=== PATIENT | female | born 1980 | race Caucasian/White ===

== ENCOUNTER 2019-05-09 20:00 | Emergency (ER) | payer SELFPAY ==
[~2019-05-09] VITALS: Ht 165.1 cm; Wt 63.0 kg
[2019-05-09 20:35] VITALS: BP 142/86
[2019-05-09] MEDS ORDERED: PENI500T PO (21:10)
[2019-05-09] MEDS ORDERED: HYDR-3164 PO (21:10)
--- NOTE | 2019-05-09 21:10 | PHYS DOC ---
Past Medical History Past Medical History: No Pertinent History Past Surgical History: No Surgical History Smoking Status: Never Smoker Alcohol Use: Occasionally Drug Use: None Adult General Chief Complaint Chief Complaint: DENTAL PROBLEM HPI HPI Patient is a 38 year old female who presents with right upper inner gums are tender and swollen. No drainage is seen. Patient does have dental caries. No broken teeth. This is been going on for the last 3 days. Patient rates her pain a 10 out of 10. Patient also has right facial swelling. She denies fever. Review of Systems Review of Systems HENT: Denies nasal congestion or sore throat. Gum line irritation and facial swelling. [] All other systems were reviewed and found to be within normal limits, except as documented in this note. Physical Exam Physical Exam Constitutional: Well developed, well nourished, no acute distress, non-toxic appearance. [] HENT: Normocephalic, atraumatic, bilateral external ears normal, oropharynx moist, no oral exudates, nose normal. Right facial swelling and upper inner gumline along teeth is swollen and tender with palpation. Dental caries. [] Eyes: PERRLA, EOMI, conjunctiva normal, no discharge. [] Neck: Normal range of motion, no tenderness, supple, no stridor. [] Cardiovascular:Heart rate regular rhythm, no murmur [] Lungs & Thorax: Bilateral breath sounds clear to auscultation [] Abdomen: Bowel sounds normal, soft, no tenderness, no masses, no pulsatile sharmin s. [] Skin: Warm, dry, no erythema, no rash. [] Back: No tenderness, no CVA tenderness. [] Extremities: No tenderness, no cyanosis, no clubbing, ROM intact, no edema. [] Neurologic: Alert and oriented X 3, normal motor function, normal sensory function, no focal deficits noted. [] Psychologic: Affect normal, judgement normal, mood normal. [] Current Patient Data Vital Signs Vital Signs Date Time Temp Pulse Resp B/P (MAP) Pulse Ox O2 Delivery O2 Flow Rate FiO2 05/09/19 20:35 98.1 90 18 142/86 (104) 98 Room Air 98.1 EKG EKG [] Radiology/Procedures Radiology/Procedures [] Course & Med Decision Making Course & Med Decision Making Pertinent Labs and Imaging studies reviewed. (See chart for details) Patient complains that the pain goes into her ear and in her jaw line and down into the right throat. No swelling of the tonsils or exudates or redness of the throat. No tenderness in the neck with palpation and there is no lymph nodes swollen. Patient does have tenderness to the right side of her face with palpat ion. No redness or cellulitis is seen. Patient to follow-up with a dentist as soon as possible. [] Dragon Disclaimer Dragon Disclaimer This electronic medical record was generated, in whole or in part, using a voice recognition dictation system. Departure Departure Impression: Primary Impression: Pain, dental Disposition: HOME, SELF-CARE Condition: STABLE Referrals: NO PCP (PCP) Patient Instructions: Dental Abscess Additional Instructions: Follow up with a dentist as soon as possible. Take medication as prescribed. Scripts Hydrocodone/Apap 5-325 (NORCO 5-325 TABLET) 1 Each Tablet 1 TAB PO PRN Q6HRS PRN for PAIN, #10 TAB 0 Refills Prov: DENISE RECINOS APRN 05/09/19 Penicillin V Potassium (PENICILLIN V POTASSIUM) 500 Mg Tablet 1 TAB PO QID, #40 TAB Prov: DENISE RECINOS APRN 05/09/19 DENISE RECINOS APRN May 09, 2019 21:10
== END 2019-05-09 21:14 | disposition home or self-care (01) ==
LOC: ER 20:00
DX: K08.89 Other specified disorders of teeth and supporting structures (principal); R60.0 Localized edema; K05.00 Acute gingivitis, plaque induced
CPT/HCPCS: 99283

== ENCOUNTER 2019-09-04 11:02 | Emergency (ER) | payer SELFPAY ==
[~2019-09-04] VITALS: Ht 154.9 cm; Wt 62.7 kg
[~2019-09-04 11:02] MED LIST: HYDR-3164 PO; PENI500T PO
--- NOTE | 2019-09-04 12:43 | RAD ---
PROCEDURE: HAND LEFT 3V STUDY DATE: 09/04/2019 CLINICAL INDICATION / HISTORY: Reason: NO DEFINITE INJURY, PAIN ACROSS 4TH AND 5TH METACARPAL / Spl. Instructions: / History: . TECHNIQUE: PA, lateral and oblique views of the left hand. COMPARISON: None FINDINGS: No fracture or dislocation is identified. The bone density is normal. The joint spaces are maintained, and there are no erosions to suggest an inflammatory arthropathy. The soft tissues are unremarkable. IMPRESSION: No acute osseous abnormality. Electronically signed by: Eli Rodríguez MD (09/04/2019 12:41 PM) [id number]
[2019-09-04 12:53] VITALS: BP 145/83
--- NOTE | 2019-09-04 13:17 | PHYS DOC ---
Past Medical History Past Medical History: No Pertinent History (DENISE RECINOS APRN) Past Surgical History: No Surgical History (DENISE RECINOS APRN) Smoking Status: Never Smoker Alcohol Use: Occasionally Drug Use: None (DENISE RECINOS APRN) General Adult EDM: Chief Complaint: HAND PROBLEM HPI: HPI: Patient is a 39 year old female who presents with left hand ulnar pain and swelling. 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 She states that all the weight of this patient has to go on this hand in the wrist area. She noticed 1 week ago the swelling and the throbbing pain and then it went away. She states that 3 days ago it returned. She states she is been taking care of this patient for the last 2 months. She states she does not have a primary care physician. She denies skin color change, skin temperature change, numbness or tingling, focal weakness, chest pain, shortness of air, injury, headache, dizziness, previous PEs or DVTs, vision changes. (DENISE RECINOS APRN) Review of Systems: Review of Systems: Constitutional: Denies fever or chills. [] Eyes: Denies change in visual acuity. [] HENT: Denies nasal congestion or sore throat. [] Respiratory: Denies cough or shortness of breath. [] Cardiovascular: Denies chest pain or edema. [] GI: Denies abdominal pain, nausea, vomiting, bloody stools or diarrhea. [] : Denies dysuria. [] Musculoskeletal: Denies back pain or Left hand joint pain. [] Integument: Denies rash. [] Neurologic: Denies headache, focal weakness or sensory changes. [] Endocrine: Denies polyuria or polydipsia. [] Lymphatic: Denies swollen glands. [] Psychiatric: Denies depression or anxiety. [] (DENISE RECINOS APRN) Heart Score: Risk Factors: Risk Factors: DM, Current or recent (<one month) smoker, HTN, HLP, family history of CAD, obesity. Risk Scores: Score 0 - 3: 2.5% MACE over next 6 weeks - Discharge Home Score 4 - 6: 20.3% MACE over next 6 weeks - Admit for Clinical Observation Score 7 - 10: 72.7% MACE over next 6 weeks - Early Invasive Strategies (DENISE RECINOS APRN) Physical Exam: PE: Constitutional: Well developed, well nourished, no acute distress, non-toxic appearance. [] HENT: Normocephalic, atraumatic, bilateral external ears normal, oropharynx moist, no oral exudates, nose normal. [] Eyes: PERRLA, EOMI, conjunctiva normal, no discharge. [] Neck: Normal range of motion, no tenderness, supple, no stridor. [] Cardiovascular:Heart rate regular rhythm, no murmur [] Lungs & Thorax: Bilateral breath sounds clear to auscultation [] Abdomen: Bowel sounds normal, soft, no tenderness, no masses, no pulsatile masses. [] Skin: Warm, dry, no erythema, no rash. [] Back: No tenderness, no CVA tenderness. [] Extremities: Left ulnar side of hand tenderness, no cyanosis, no clubbing, ROM intact, 1+ edema. [] Neurologic: Alert and oriented X 3, normal motor function, normal sensory function, no focal deficits noted. [] Psychologic: Affect normal, judgement normal, mood normal. [] (DENISE RECINOS LIBERAL ARTS DEAN) Current Patient Data: Vital Signs: Vital Signs Date Time Temp Pulse Resp B/P (MAP) Pulse Ox O2 Delivery O2 Flow Rate FiO2 09/04/19 12:53 97.8 72 16 145/83 (103) 100 Room Air 97.8 (DENISE RECINOS LIBERAL ARTS DEAN) EKG: EKG: [] (DENISE RECINOS APRN) Radiology/Procedures: Radiology/Procedures: [] (DENISE RECINOS APRN) Course & Med Decision Making: Course & Med Decision Making Pertinent Labs and Imaging studies reviewed. (See chart for details) Full sensations intact. Left hand 1+ swollen. Patient can still wear her rings on her finger but I educated her that she should probably take the rings off. Also educated her that she needs to elevate and use ice on the hand. We will give her an Osman bandage to help pain or she can use it when she is working. Patient can make a fist but is weaker than the other fist due to some swelling. Cap refill less than 3 seconds. Skin pink warm and dry. Radial pulses strong and present. The rest of the arm is not swollen. She has full range of motion of her wrist and her elbow. She can wiggle and move all fingers. Patient is educated that if she has skin color changes or coolness to the extremity or increased pain and swelling she should return. Ambulatory with a steady gait. Speaks in full clear sentences. Skin pink warm and dry. Patient denies any past medical history or medications. She states she is been taking Tylenol at home for pain. She states it does help. [] (DENISE RECINOS APRN) Dragon Disclaimer: Dragon Disclaimer: This electronic medical record was generated, in whole or in part, using a voice recognition dictation system. (DENISE RECINOS APRN) Departure Departure Impression: Primary Impression: Hand pain, left Disposition: 01 HOME, SELF-CARE Condition: STABLE Referrals: NO PCP (PCP) Patient Instructions: Medical Screening Exam Additional Instructions: Follow-up with a primary care physician. Remember if you start having skin color changes increased swelling and pain or loss of sensation you need to ret urn to the emergency room. Take Ibuprofen for your pain. Justicifation of Admission Dx: Justifications for Admission: Justification of Admission Dx: N/A (DENISE RECINOS APRN) Attending Signature Attending Signature I have participated in the care of this patient and I have reviewed and agree with all pertinent clinical information above including history, exam, and recommendations. (JUAN LUIS CORONEL DO) Attending Signature Attending Signature I have participated in the care of this patient and I have reviewed and agree with all pertinent clinical information above including history, exam, and recommendations. (JUAN LUIS CORONEL DO) DENISE RECINOS APRN Sep 04, 2019 13:17 JUAN LUIS CORONEL DO Sep 04, 2019 13:30
== END 2019-09-04 13:35 | disposition home or self-care (01) ==
LOC: ER 11:02
DX: M79.642 Pain in left hand (principal); R60.0 Localized edema
CPT/HCPCS: 73130; 99283

== ENCOUNTER 2020-01-23 20:58 | Emergency (ER) | payer SELFPAY ==
[~2020-01-23] VITALS: Ht 154.9 cm; Wt 70.4 kg
[2020-01-23 23:49] LABS: BILIRUBIN,URINE NEGATIVE (NEG); CLARITY,URINE CLEAR; COLOR,URINE YELLOW; NITRITE,URINE NEGATIVE (NEG); PH,URINE 5.5 (<5.0-8.0); PROTEIN,URINE NEGATIVE (NEG-TRACE); UROBILINOGEN,URINE 0.2 mg/dL (0.2 mg/dL)
[2020-01-23 23:54] LABS: BACTERIA,URINE FEW /HPF (0-FEW); RBC,URINE OCC /HPF (0-2)
[2020-01-23 23:55] LABS: TRICHOMONAS,URINE PRESENT
[2020-01-24 00:44] LABS: BASO # 0.2 x10^3/uL (0.0-0.2); BASO % 2 % (0-3); EOS # 0.1 x10^3/uL (0.0-0.7); EOS % 1 % (0-3); HEMATOCRIT 38.5 % (36.0-47.0); HEMOGLOBIN 13.3 g/dL (12.0-15.5); LYMPH # 4.2 x10^3/uL (1.0-4.8); LYMPH % 41 % (24-48); MEAN CORPUSCULAR HEMOGLOBIN 34 pg (25-35); MEAN CORPUSCULAR HGB CONC 35 g/dL (31-37); MEAN CORPUSCULAR VOLUME 98 fL (79-100); MONO # 0.6 x10^3/uL (0.0-1.1); MONO % 6 % (0-9); NEUT # 5.4 x10^3/uL (1.8-7.7); NEUT % 52 % (31-73); PLATELET COUNT 582 x10^3/uL (140-400); RED BLOOD COUNT 3.92 x10^6/uL (3.50-5.40); RED CELL DISTRIBUTION WIDTH 13.9 % (11.5-14.5); WHITE BLOOD COUNT 10.4 x10^3/uL (4.0-11.0)
[2020-01-24] MEDS ORDERED: KETOROLAC 30 MG/ML VIAL. IVP ONE (00:45)
[2020-01-24 00:52] LABS: CALCIUM 9.4 mg/dL (8.5-10.1); CREATININE 0.7 mg/dL (0.6-1.0); GFR 94.2; POTASSIUM 3.4 mmol/L (3.5-5.1)
[2020-01-24 00:59] LABS: ALBUMIN 3.9 g/dL (3.4-5.0); TOTAL BILIRUBIN 0.1 mg/dL (0.2-1.0)
[2020-01-24] MEDS ORDERED: CONTRAST GIVEN. MC PRN (01:30)
[2020-01-24] MEDS ORDERED: IOHEXOL 300 MG/ML 100ML VIAL. IV ONE (01:30)
--- NOTE | 2020-01-24 01:50 | RAD ---
CT SCAN OF THE ABDOMEN AND PELVIS WITH IV CONTRAST. History: Reason: LEFT SIDE ABDOMINAL PAIN, OMNI 300, 75 ML IV / Spl. Instructions: / History: Comparison:None. Procedure: Contiguous axial images of the abdomen and pelvis were performed after the administration of 75 cc of Omni 300 IV contrast. Oral contrast: No. Findings: The appendix is not well seen. The gallbladder appears normal. Liver: Unremarkable Spleen: Unremarkable Pancreas: Unremarkable Adrenal Glands: Unremarkable Kidneys: Unremarkable There is no mass or lymphadenopathy. There is no free air. There is no free fluid. The urinary bladder appears normal. Impression: No acute findings. PQRS Compliance Statement: One or more of the following individualized dose reduction techniques were utilized for this examination: 1. Automated exposure control 2. Adjustment of the mA and/or kV according to patient size 3. Use of iterative reconstruction technique Electronically signed by: Jaswinder Faustin III, MD (01/24/2020 1:47 AM) [facility]
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
[2020-01-24] MEDS ORDERED: cefTRIAXone IV Push 1 GM VIAL. IVP ONE (02:30)
[2020-01-24] MEDS ORDERED: AZITHROMYCIN 250 MG TABLET. PO ONE (02:30)
[2020-01-24] MEDS ORDERED: NAPR-682 PO (02:42)
[2020-01-24] MEDS ORDERED: METR500T PO (02:42)
[2020-01-24 03:00] VITALS: BP 163/93
== END 2020-01-24 03:07 | disposition home or self-care (01) ==
LOC: ER 20:58
DX: A59.01 Trichomonal vulvovaginitis (principal); R10.32 Left lower quadrant pain
CPT/HCPCS: 36415; 74177; 80053; 81001; 81025; 83690; 85025; 87086; 96374; 96375; 99285; J0696; J1885; Q9967

== ENCOUNTER 2020-02-20 16:48 | Emergency (ER) | payer SELFPAY ==
[~2020-02-20] VITALS: Ht 154.9 cm; Wt 68.2 kg
[~2020-02-20 16:48] MED LIST changes: +METR500T PO; +NAPR-682 PO
[2020-02-20 18:10] VITALS: BP 146/86
[2020-02-20] MEDS ORDERED: methylPREDNISolone ACETATE 80 MG/ML VIAL. IM ONE (18:45)
[2020-02-20] MEDS ORDERED: KETOROLAC 60 MG/2 ML VIAL. IM ONE (18:45)
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
[2020-02-20] MEDS ORDERED: IBUP-1007 PO (20:15)
== END 2020-02-20 20:28 | disposition home or self-care (01) ==
LOC: ER 16:48
DX: M79.671 Pain in right foot (principal); M79.672 Pain in left foot
CPT/HCPCS: 73630; 81025; 96372; 99284; J1040; J1885